=== PATIENT | male | born 1960 | race Caucasian/White ===

== ENCOUNTER 2021-01-10 16:40 | Emergency (ER) | payer OTHER ==
[~2021-01-10] VITALS: Ht 182.9 cm; Wt 100.0 kg
[~2021-01-10 16:40] MED LIST: CELE200C; HYDR-3569; VALIUM
[2021-01-10] MEDS ORDERED: LIDOCAINE-MPF 2% ,5ML ONE ×2 (18:22)
[2021-01-10] MEDS ORDERED: DIPH,PERTUSS(ACELL),TET VAC/PF 0.5 ML IM-VACC ONE (18:30)
[2021-01-10] MEDS ORDERED: LIDOCAINE-MPF 1%, 5ML INFIL ONE (18:30)
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
[2021-01-10 19:20] VITALS: BP 132/79
== END 2021-01-10 19:21 | disposition home or self-care (01) ==
LOC: ED 19:12
DX: S81.012A Laceration without foreign body, left knee, initial encounter (principal); X58.XXXA Exposure to other specified factors, initial encounter; Y93.89 Activity, other specified; Y92.009 Unspecified place in unspecified non-institutional (private) residence as the place of occurrence of the external cause; Y99.8 Other external cause status
CPT/HCPCS: 12002; 90471; 90715

== ENCOUNTER 2021-01-18 05:48 | Emergency (ER) | payer OTHER ==
[~2021-01-18] VITALS: Ht 185.4 cm; Wt 103.0 kg
[2021-01-18 05:50] VITALS: BP 146/86
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
[2021-01-18] MEDS ORDERED: NEOSPORIN OINT. PKT 1 PACKET ONE (06:19)
== END 2021-01-18 06:27 | disposition home or self-care (01) ==
LOC: ED 06:14
DX: Z48.01 Encounter for change or removal of surgical wound dressing (principal)
CPT/HCPCS: 99283